=== PATIENT | female | born 1980 | race Caucasian/White ===

== ENCOUNTER 2017-07-28 08:37 | Emergency (ER) | payer MEDICAID ==
[~2017-07-28] VITALS: Ht 154.9 cm; Wt 76.5 kg
[2017-07-28 08:41] VITALS: Ht 154.9 cm; Wt 76.5 kg
[2017-07-28] MEDS ORDERED: BENZ100C70 PO (09:04)
[2017-07-28] MEDS ORDERED: IBUP-1542 PO (09:04)
[2017-07-28] MEDS ORDERED: ALBU8.5H3 INH (09:04)
--- NOTE | 2017-07-28 10:44 | ERD ---
ER Documentation Chief Complaint Date/Time DATE: 07/28/17 TIME: 10:42 Chief Complaint cough x 3 days HPI 7-year-old female patient with no significant past medical history presents the ED complaining of a dry cough, rhinorrhea, sore throat that started for 3 days. Patient tried taking NyQuil without relief of her symptoms. Denies any chest pain, shortness of breath, wheezing, abdominal pain, nausea, vomiting, diarrhea , vomiting. Denies any sick contacts. Denies any change in phonation, dysphagia , odynophagia. ROS All systems reviewed and are negative except as per history of present illness. Medications Home Meds Active Scripts Ibuprofen* (Motrin*) 600 Mg Tab, 600 MG PO Q6, #30 TAB Prov:EBONY JOHNSON PA-C 07/28/17 Albuterol Sulfate* (Proair HFA*) 8.5 Gm Hfa.aer.ad, 2 PUFF INH Q4, #1 INHALER Prov:EBONY JOHNSON PA-C 07/28/17 Benzonatate* (Tessalon Perle*) 100 Mg Capsule, 100 MG PO Q8H Y for COUGH, #20 CAP Prov:EBONY JOHNSON PA-C 07/28/17 Allergies Allergies: Coded Allergies: No Known Allergy (Unverified , 01/11/15) PMhx/Soc History of Surgery: No Anesthesia Reaction: No Hx Neurological Disorder: No Hx Respiratory Disorders: No Hx Cardiac Disorders: No Hx Psychiatric Problems: No Hx Miscellaneous Medical Probl: No Hx Alcohol Use: No Hx Substance Use: No Hx Tobacco Use: No Smoking Status: Never smoker Physical Exam Vitals Vital Signs Date Time Temp Pulse Resp B/P Pulse Ox O2 Delivery O2 Flow Rate FiO2 07/28/17 08:41 98.4 89 18 130/63 98 Physical Exam Const: [id number], well-nourished. In no acute distress. Head: Atraumatic, normocephalic Eyes: Normal Conjunctiva without injection. No purulent discharge. PERRL. EOMI ENT: Normal external ear. Ear canal without erythema. Tympanic membrane pearly mendez without effusion or bulging. Nasal canal clear with normal turbinates. Moist oropharynx without tonsillar exudates. Non-erythematous pharynx. Uvula midline. No drooling. No trismus. Neck: Full range of motion. No meningismus. No cervical lymphadenopathy. Resp: Clear to auscultation bilaterally. No wheezing, rhonchi, rales, or crackles. No accessory muscle use. No retractions. Cardio: Regular rate and rhythm. No murmurs, rubs or gallops. Abd: Soft, non tender, non distended. Normal bowel sounds. No palpable masses. No rebound tenderness. No guarding. Skin: No petechiae or rashes Back: No midline tenderness. No CVA tenderness. Ext: No cyanosis, or edema. Neur: Awake and alert. Psych: Normal Mood and Affect Procedures/MDM 7-year-old female patient with no significant past medical history presents the ED complaining of a dry cough, sore throat, rhinorrhea that started 3 days ago. Patient is afebrile nontoxic appearing. Patient has normal vital signs. This patient presents to the ED with symptoms consistent with a viral acute upper respiratory infection. Patient is afebrile and has normal vital signs. Patient's physical exam include lungs which were clear to auscultation and a normal pulse oximetry. There is a low suspicion for pneumonia, pneumothorax, mononucleosis, pulmonary embolism, epiglottitis, otitis media, otitis externa, viral/strep pharyngitis, sinusitis, peritonsillar abscess, mastoiditis, retropharyngeal abscess, meningitis, sepsis, acute abdomen or other emergent conditions. Fluids, rest, and symptomatic treatment are recommended for the management of patient's symptoms. Discharge medications: Pro-air, Tessalon Perles, Ibuprofen Patient was instructed to return to the ED for any new or worsening symptoms. They should otherwise follow up with the primary care provider within 1-2 days. The patient's questions were answered at the time of discharge. Patient understood and agreed with discharge management. Departure Diagnosis: Primary Impression: Cough Additional Impressions: Body aches Sore throat Condition: Stable Patient Instructions: Uri, Viral, No Abx (Adult) [facility] Usted se way hecho un examen mdico de control que le indica que no est en travis condicin que requiera tratamiento urgente en el Departamento de Emergencia. Un estudio ms profundo y el tratamiento de garcia condicin pueden esperar sin ningn riesgo hasta que usted sea atendida/o en el consultorio de garcia mdico o travis cl michelle. Es responsabilidad suya arreglar travis susy para el seguimiento del hoa. MANEJO DE CONDICIONES NO URGENTES EN EL FUTURO 1) Si usted tiene un mdico de atencin primaria: Usted debera llamar a garcia mdico de atencin primaria antes de venir al departamento de emergencia. Despus de las horas de consultorio, garcia doctor o garcia asociado/a est disponible por telfono. El mdico o enfermero de heber en el servicio telefnico puede asesorarle por nicola medio para atender el problema, o hoa contrario se puede programar travis susy. 2) Si usted no tiene un mdico de atencin primaria: Llame al mdico o clnica de referencia que aparece abajo latisha las horas de consultorio para hacer travis susy para que le vean. CLINICAS: [facility] [phone] [facility] [phone] [facility]. [place] [phone] [facility]. [place] [id number] [phone] [facility] [place] [phone] [facility]. [phone] [address] [facility]. [facility] () Usted se way hecho un examen mdico de control que le indica que no est en travis condicin que requiera tratamiento urgente en el Departamento de Emergencia. Un estudio ms profundo y el tratamiento de garcia condicin pueden esperar sin ningn riesgo hasta que usted sea atendida/o en el consultorio de garcia mdico o travis cl michelle. Es responsabilidad suya arreglar travis susy para el seguimiento del hoa. MANEJO DE CONDICIONES NO URGENTES EN EL FUTURO 1) Si usted tiene un mdico de atencin primaria: Usted debera llamar a garcia mdico de atencin primaria antes de venir al departamento de emergencia. Despus de las horas de consultorio, garcia doctor o garcia asociado/a est disponible por telfono. El mdico o enfermero de heber en el servicio telefnico puede asesorarle por nicola medio para atender el problema, o hoa contrario se puede programar travis susy. 2) Si usted no tiene un mdico de atencin primaria: Llame al mdico o condado institucions de referencia que aparece abajo latisha las horas de consultorio para hacer travis susy para que le vean. SI USTED NO PUEDE PAGAR PARA CAROL UN MEDICO puede ir a: [facility] [id number] [place] [address] [facility] [address] [place] [address] [facility] [address] [place] [address] [address] [facility] [address] [place], [place] [id number] [facility] Additional Instructions: Llame al doctor MAANA y michael travis SUSY PARA DENTRO DE 2-3 SUGGS.Dgale a la secretaria que nosotros le instruimos hacer esta susy.Avise o llame si garcia condicin se empeora antes de la susy. Regresa aqui si peor o no mejor. EBONY JOHNSON PA-C Jul 28, 2017 10:43
== END 2017-07-28 09:20 | disposition home or self-care (01) ==
LOC: FTE 08:37
DX: J02.9 Acute pharyngitis, unspecified (principal); R52 Pain, unspecified
CPT/HCPCS: 99284